=== PATIENT | male | born 1985 | race Caucasian/White ===

== ENCOUNTER 2018-09-04 12:26 | Emergency (ER) | payer MEDICAID ==
--- NOTE | 2018-09-04 13:02 | ER Document Report ---
HPI - HPI Time Seen by Provider: 09/04/18 12:51 Pain Level: 4 Notes: Patient is a 32-year-old male no significant past medical history aside from ADHD and anxiety who presents to the emergency department complaining of left lateral foot pain status post injury yesterday. Patient states that he was standing on a tailgate when his foot slipped off and he inverted on landing. Patient states that the pain does not radiate, but he has noticed some swelling and bruising to the lateral dorsal foot. Denies drug allergies. No other concerns or complaints. Denies any headache, fever, neck pain, URI, sore throat, chest pain, palpitations, syncope, cough, shortness of breath, wheeze, dyspnea, abdominal pain, nausea/vomiting/diarrhea, urinary retention, dysuria, hematuria, back pain, loss of control of bowel or bladder, numbness/tingling, muscle paralysis, or rash. - ROS Systems Reviewed and Negative: Yes All other systems reviewed and negative Past Medical History - Social History Smoking Status: Current Every Day Smoker Family History: Reviewed & Not Pertinent - Past Medical History Cardiac Medical History: Reports: Hx Heart Attack - coronary artery spasms Psychiatric Medical History: Reports: Hx Anxiety, Hx Attention Deficit Hyperactivity Disorder, Hx Depression Past Surgical History: Reports: Hx Cardiac Catheterization, Hx Orthopedic Surgery - Immunizations Hx Diphtheria, Pertussis, Tetanus Vaccination: Yes Vertical Provider Document - CONSTITUTIONAL Agree With Documented VS: Yes Notes: PHYSICAL EXAMINATION: GENERAL: Well-appearing, well-nourished and in no acute distress. LUNGS: Breath sounds clear to auscultation bilaterally and equal. No wheezes rales or rhonchi. HEART: Regular rate and rhythm without murmurs, rubs, gallops. Musculoskeletal: Lt foot/ankle: + ecchymosis and mild swelling lateral dorsal foot. FROM to passive/active. Strength 5+/5. N/V intact distal. + tenderness t o the area of the ATFL and 5th prox metatarsal. No bony tenderness of the ankle. Achilles intact. Extremities: No cyanosis, clubbing, or edema b/l. Peripheral pulses 2+ PT and 1+ b/l to the DP. Capillary refill less than 3 seconds. NEUROLOGICAL: Normal speech, limping gait. Normal sensory, motor exams PSYCH: Normal mood, normal affect. SKIN: Warm, Dry, normal turgor, no rashes or lesions noted. - INFECTION CONTROL TRAVEL OUTSIDE OF THE [place] IN LAST 30 DAYS: No Course - Re-evaluation Re-evalutation: 09/04/18 Patient is an afebrile, well-hydrated, 32-year-old female who presents to the ED with left foot pain and avulsion fracture prox/lateral cuboid. Vitals are acceptable without any significant tachycardia, tachypnea, or hypoxia. PE is otherwise unremarkable for any neurovascular compromise, obvious tendon/ligament rupture, open fracture, septic joint. See XR result. Splint applied today and crutches provided. Patient declined any Tylenol or Motrin at this time. Patient is nontoxic-appearing. No other labs or imaging warranted at this time based on H&P. Conservative measures otherwise for symptoms. Recheck with your PCM in 3-5 days. Call orthopedics today/tomorrow to schedule an appointment for further evaluation and management. Return to the ED with any worsening/concerning symptoms otherwise as reviewed in discharge. Patient is in agreement. - Vital Signs Vital signs: Temp Pulse Resp BP Pulse Ox 98.1 F 86 18 115/73 100 09/04/18 12:32 09/04/18 12:32 09/04/18 12:32 09/04/18 12:32 09/04/18 12:32 Procedures - Immobilization Left Ankle Pre-Proc Neuro Vasc Exam: Normal Immobilizer type: Posterior ankle Performed by: PCT Post-Proc Neuro Vasc Exam: Normal, Unchanged from pre-exam Discharge - Discharge Clinical Impression: Left foot pain, Avulsion fracture Condition: Stable Disposition: HOME, SELF-CARE Additional Instructions: Rest, Ice, Compression, Elevation Use crutches/splint as directed Tylenol/ibuprofen as needed F/u with your PCP in 3-5 days for a recheck Call orthopedics today/tomorrow to schedule an appointment for further evaluation and management Return to the ED with any worsening symptoms and/or development of fever, headache, chest pain, palpitations, syncope, shortness of breath, trouble breathing, abdominal pain, n/v/d, muscle weakness/paralysis, numbness/tingling, swelling, redness, or other worsening symptoms that are concerning to you. Prescriptions: Acetaminophen with Codeine [Tylenol #3 Tablet] 1 each PO BID #6 tablet Forms: Smoking Cessation Education, Return to Work Referrals: RIZWANA PENALOZA MD [Primary Care Provider] - Follow up as needed [facility] [Provider Group] - Follow up in 3-5 days
--- NOTE | 2018-09-04 13:39 | RADIOLOGY REPORT (SQ) ---
EXAM DESCRIPTION: FOOT LEFT COMPLETE COMPLETED DATE/TIME: 09/04/2018 1:28 pm REASON FOR STUDY: pain s/p injury COMPARISON: None. EXAM PARAMETERS: NUMBER OF VIEWS: Three views. TECHNIQUE: AP, lateral and oblique radiographic images acquired of the left foot. LIMITATIONS: None. FINDINGS: MINERALIZATION: Normal. BONES: No dislocation. 5 mm avulsion fracture of the proximal -lateral cuboid. . JOINTS: No effusion. SOFT TISSUES: No significant soft tissue swelling. No radiopaque foreign body. OTHER: No other significant finding. IMPRESSION: 5 mm avulsion fracture of the proximal -lateral cuboid. TECHNICAL DOCUMENTATION: JOB ID: [id number] [place]-72 2010 [employer]- All Rights Reserved Reading location - IP/workstation name: [email or web address]
[2018-09-04 14:03] VITALS: BP 116/71
== END 2018-09-04 14:17 | disposition home or self-care (01) ==
LOC: ER 12:26
DX: S92.212A Displaced fracture of cuboid bone of left foot, initial encounter for closed fracture (principal); X50.0XXA Overexertion from strenuous movement or load, initial encounter; F17.210 Nicotine dependence, cigarettes, uncomplicated; I25.2 Old myocardial infarction
CPT/HCPCS: 99283

== ENCOUNTER 2018-09-19 17:39 | Emergency (ER) | payer MEDICAID ==
[2018-09-19 17:46] VITALS: BP 142/73
[2018-09-19] MEDS ORDERED: DIPH/PERTUSS(ACELL)/TETANUS VAC/PF 0.5 ML SYR (>=10YO) IM ONE (18:01)
--- NOTE | 2018-09-19 18:02 | ER Document Report ---
ED Medical Screen (RME) - General Chief Complaint: Laceration Stated Complaint: HAND INJURY Time Seen by Provider: 09/19/18 17:57 Primary Care Provider: RIZWANA PENALOZA MD [Primary Care Provider] - Follow up as needed Mode of Arrival: Ambulatory Information source: Patient Notes: 32-year-old male presents to ED for laceration to the left web between the first and second finger on the hand. He states he was opening a air compressor package with a serrated knife when the knife slipped cutting his hand. He is left-handed and this is his dominant hand so he is concerned about this laceration. I have greeted and performed a rapid initial assessment of this patient. A comprehensive ED assessment and evaluation of the patient, analysis of test results and completion of medical decision making process will be conducted by an additional ED providers. Dictation of this chart was performed using voice recognition software; therefore, there may be some unintended grammatical errors. TRAVEL OUTSIDE OF THE [place] IN LAST 30 DAYS: No - Related Data Allergies/Adverse Reactions: No Known Allergies Allergy (Verified 09/19/18 17:40) Past Medical History - Past Medical History Cardiac Medical History: Reports: Hx Heart Attack - coronary artery spasms Renal/ Medical History: Denies: Hx Peritoneal Dialysis Psychiatric Medical History: Reports: Hx Anxiety, Hx Attention Deficit Hyperactivity Disorder, Hx Depression Past Surgical History: Reports: Hx Cardiac Catheterization, Hx Orthopedic Surgery - Immunizations Hx Diphtheria, Pertussis, Tetanus Vaccination: Yes Physical Exam - Vital signs Vitals: Temp Pulse Resp BP Pulse Ox 98.6 F 94 18 142/73 H 97 09/19/18 17:45 09/19/18 17:45 09/19/18 17:45 09/19/18 17:45 09/19/18 17:45 Course - Vital Signs Vital signs: Temp Pulse Resp BP Pulse Ox 98.6 F 94 18 142/73 H 97 09/19/18 17:45 09/19/18 17:45 09/19/18 17:45 09/19/18 17:45 09/19/18 17:45 Doctor's Discharge - Discharge Referrals: RIZWANA PENALOZA MD [Primary Care Provider] - Follow up as needed
[2018-09-19] MEDS ORDERED: LIDOCAINE 1% INJ-PF (10 MG/ML) 30 ML SDV INJ ONE (19:29)
--- NOTE | 2018-09-19 19:31 | ER Document Report ---
ED Wound - General Chief Complaint: Laceration Stated Complaint: HAND INJURY Time Seen by Provider: 09/19/18 17:57 Primary Care Provider: RIZWANA PENALOZA MD [Primary Care Provider] - Follow up as needed Mode of Arrival: Ambulatory Information source: Patient TRAVEL OUTSIDE OF THE [place] IN LAST 30 DAYS: No - HPI Patient complains to provider of: Laceration Notes: Patient here with complaints of laceration to the left hand. He was opening up a compressor package with a serrated kitchen knife and it slipped and stabbed him in the left hand between his thumb and his index finger. Bleeding controlled. No numbness, tingling, weakness. Tetanus was updated today. He denies any redness or drainage. No nausea, vomiting, diarrhea. Pain is mild, constant, worse with movement, better with rest. No chest pain or shortness of breath. No nausea, vomiting, diarrhea. No other injuries, no other complaints. - Related Data Allergies/Adverse Reactions: No Known Allergies Allergy (Verified 09/19/18 17:40) Past Medical History - General Information source: Patient - Social History Smoking Status: Current Every Day Smoker Family History: Reviewed & Not Pertinent Patient has suicidal ideation: No Patient has homicidal ideation: No - Past Medical History Cardiac Medical History: Reports: Hx Heart Attack - coronary artery spasms Renal/ Medical History: Denies: Hx Peritoneal Dialysis Psychiatric Medical History: Reports: Hx Anxiety, Hx Attention Deficit Hyperactivity Disorder, Hx Depression Past Surgical History: Reports: Hx Cardiac Catheterization, Hx Orthopedic Surgery - Immunizations Hx Diphtheria, Pertussis, Tetanus Vaccination: Yes Review of Systems - Review of Systems -: Yes All other systems reviewed and negative Physical Exam - Vital signs Vitals: Temp Pulse Resp BP Pulse Ox 98.6 F 94 18 142/73 H 97 09/19/18 17:45 09/19/18 17:45 09/19/18 17:45 09/19/18 17:45 09/19/18 17:45 - Notes Notes: GENERAL: alert, cooperative, nontoxic, no distress. HEAD: normocephalic, atraumatic EYES: conjunctiva pink without discharge, no external redness or swelling. EARS: no external swelling, no external redness NOSE: atraumatic, no external swelling MOUTH/THROAT: mucous membranes moist and pink NECK: soft, supple, full range of motion, no meningismus. CHEST: no distress, lungs clear and equal throughout. No wheezing, rales, rhonchi. CARDIAC: regular rate and rhythm, no murmur, normal capillary refill, normal pulses. BACK: full range of motion, no CVA tenderness. EXTREMITIES: full range of motion of all extremities. No redness, no swelling. 1 cm laceration to the webspace between the left thumb and index finger. Full range of motion of the thumb. No tendon laceration. No foreign body. Bleeding controlled. No surrounding redness or drainage. NEURO: alert and oriented 3, no focal deficits, full range of motion of all extremities. PYSCH: appropriate mood, affect. Patient is cooperative. SKIN: pink, warm, dry, no rash. Course - Re-evaluation Re-evalutation: 09/19/18 20:17 Patient not nontoxic-appearing with stable vitals. Patient here with complaints of left hand laceration. He was opening up a package when he excellently stabbed himself between the left thumb and left index finger. Patient noted to have a laceration which was repaired patient will be discharged home. He is instructed to follow-up in 10 to 12 days for suture removal, sooner for worsening pain, fever, redness, drainage, numbness, tingling, weakness, any further concerns. The patient's emergency department workup and current diagnosis were explained to the patient and or family. Follow-up instructions were provided. Medications if prescribed were discussed. Instructions for when to return to the emergency department including specific worrisome symptoms were discussed with the patient and/or family. - Vital Signs Vital signs: Temp Pulse Resp BP Pulse Ox 98.6 F 94 18 142/73 H 97 09/19/18 17:45 09/19/18 17:45 09/19/18 17:45 09/19/18 17:45 09/19/18 17:45 Procedures - Laceration/Wound Repair LEFT HAND Wound length (cm): 1 Wound's Depth, Shape: Superficial, Linear Laceration pre-procedure: Sterile PPE donned, Sterile drapes applied, Shur-Clens applied Anesthetic type: 1% Lidocaine Wound explored: Clean, No foreign body removed Irrigated w/ Saline (mLs): 100 Wound Repaired With: Sutures Suture Size/Type: 4:0, Ethilon Number of Sutures: 3 Layer Closure?: No Post-procedure wound care: Sterile dressing applied Post-procedure NV exam normal: Yes Complications: No Discharge - Discharge Clinical Impression: Laceration of left hand Qualifiers: Encounter type: initial encounter Foreign body presence: without foreign body Qualified Code(s): S61.412A - Laceration without foreign body of left hand, initial encounter Condition: Stable Disposition: HOME, SELF-CARE Instructions: Antibiotic Ointment Protection (OM), Laceration Care (OM), Soap Cleansing ([facility]) Additional Instructions: Clean wound twice a day with soap and water. Drink plenty of fluids. Follow-up with your doctor in 10 to 12 days for suture removal, sooner for worsening pain, fever, redness, drainage, numbness, tingling, weakness, any further concerns. Forms: Elevated Blood Pressure, Smoking Cessation Education Referrals: RIZWANA PENALOZA MD [Primary Care Provider] - Follow up as needed
[2018-09-19] MEDS ORDERED: HYDROCODONE/ACETAMINOPHEN 5-325 MG TABLET PO ONE (20:48)
== END 2018-09-19 20:53 | disposition home or self-care (01) ==
LOC: ER 17:39
PROC: 0HQGXZZ Repair Left Hand Skin, External Approach (ICD-10-PCS; principal; 2018-09-19)
DX: S61.412A Laceration without foreign body of left hand, initial encounter (principal); W01.0XXA Fall on same level from slipping, tripping and stumbling without subsequent striking against object, initial encounter; F17.200 Nicotine dependence, unspecified, uncomplicated
CPT/HCPCS: 90471; 90715; 99282

== ENCOUNTER 2018-12-02 10:09 | Emergency (ER) | payer SELFPAY ==
[2018-12-02] MEDS ORDERED: OXYCODONE-ACETAMINOPHEN 5-325 MG TABLET PO ONE ×2 (10:20→11:07)
--- NOTE | 2018-12-02 10:22 | ER Document Report ---
ED Medical Screen (RME) - General Chief Complaint: Foot Injury Stated Complaint: FOOT INJURY Time Seen by Provider: 12/02/18 10:15 Primary Care Provider: RIZWANA PENALOZA MD [Primary Care Provider] - Follow up as needed Mode of Arrival: Wheelchair Information source: Patient Notes: This 32-year-old male presents to the emergency department with a nail through his work boot that goes all the way through his foot. Patient reports his tetanus is up-to-date. Reports it is a little bit uncomfortable. Patient was working on a shed at a personal residence. I have greeted and performed a rapid initial assessment of this patient. A comprehensive ED assessment and evaluation of the patient, analysis of test results and completion of the medical decision making process will be conducted by additional ED providers. Dictation of this chart was performed using voice recognition software; therefore, there may be some unintended grammatical errors. TRAVEL OUTSIDE OF THE [place] IN LAST 30 DAYS: No - Related Data Allergies/Adverse Reactions: No Known Allergies Allergy (Verified 12/02/18 10:10) Past Medical History - Past Medical History Cardiac Medical History: Reports: Hx Heart Attack - coronary artery spasms Renal/ Medical History: Denies: Hx Peritoneal Dialysis Psychiatric Medical History: Reports: Hx Anxiety, Hx Attention Deficit Hyperactivity Disorder, Hx Depression Past Surgical History: Reports: Hx Cardiac Catheterization, Hx Orthopedic Surgery - Immunizations Hx Diphtheria, Pertussis, Tetanus Vaccination: Yes Physical Exam - Vital signs Vitals: Temp Pulse Resp BP Pulse Ox 98.6 F 88 18 114/78 97 12/02/18 10:13 12/02/18 10:13 12/02/18 10:13 12/02/18 10:13 12/02/18 10:13 Course - Vital Signs Vital signs: Temp Pulse Resp BP Pulse Ox 98.6 F 88 18 114/78 97 12/02/18 10:13 12/02/18 10:13 12/02/18 10:13 12/02/18 10:13 12/02/18 10:13 Doctor's Discharge - Discharge Referrals: RIZWANA PENALOZA MD [Primary Care Provider] - Follow up as needed
--- NOTE | 2018-12-02 10:57 | RADIOLOGY REPORT (SQ) ---
EXAM DESCRIPTION: FOOT LEFT COMPLETE COMPLETED DATE/TIME: 12/02/2018 10:41 am REASON FOR STUDY: nail gun to foot thru shoe COMPARISON: 09/04/2018 NUMBER OF VIEWS: Three views. TECHNIQUE: AP, lateral and oblique radiographic images acquired of the left foot. LIMITATIONS: Patient is wearing boot. FINDINGS: MINERALIZATION: Normal. BONES: No acute fracture or dislocation. No worrisome bone lesions. JOINTS: No effusions. SOFT TISSUES: No soft tissue swelling. No foreign body. OTHER: There is a nail which appears to penetrate the 1st 2nd metatarsal interspace without evidence of fracture or cortical violation. IMPRESSION: There is a nail which appears to penetrate the left 1st 2nd metatarsal interspace withou t evidence of fracture or cortical violation. Patient is wearing boot, which somewhat limits radiogr aphic evaluation. TECHNICAL DOCUMENTATION: JOB ID: [id number] [employer]- All Rights Reserved Reading location - IP/workstation name: [email or web address]
[2018-12-02] MEDS ORDERED: PROMETHAZINE HCL 25 MG TABLET PO ONE (11:07)
[2018-12-02] MEDS ORDERED: CEFTRIAXONE 1 GM/D5W RTU 1 GM/50 ML RTUPB IV ONE (11:23)
[2018-12-02] MEDS ORDERED: LIDOCAINE 1% INJ (10 MG/ML) 10 ML MDV INJ ONE (11:34)
[2018-12-02] MEDS ORDERED: CEFTRIAXONE INJ 1000 MG VIAL IM ONE (11:34)
--- NOTE | 2018-12-02 12:08 | ER Document Report ---
ED Extremity Problem, Lower - General Chief Complaint: Foot Injury Stated Complaint: FOOT INJURY Time Seen by Provider: 12/02/18 10:15 Primary Care Provider: LYNSEY ESTRADA MD [ACTIVE PROVISIONAL STAFF] - Follow up in 3-5 days Mode of Arrival: Wheelchair Notes: Patient accidentally fired a nail gun which sent a nail into his left foot between the distal metatarsals 1 and 2.. The nail went through the patient's boot and through the foot and through the bottom of the boot and the point of the nail projected about a centimeter out of the bottom of the boot. Patient is not able to bear weight of course. Has pain sensation in the entire foot. TRAVEL OUTSIDE OF THE [place] IN LAST 30 DAYS: No - Related Data Allergies/Adverse Reactions: No Known Allergies Allergy (Verified 12/02/18 10:10) Past Medical History - General Information source: Patient - Social History Smoking Status: Current Every Day Smoker Chew tobacco use (# tins/day): No Frequency of alcohol use: Social Drug Abuse: None Family History: Reviewed & Not Pertinent Patient has suicidal ideation: No Patient has homicidal ideation: No - Past Medical History Cardiac Medical History: Reports: Hx Heart Attack - coronary artery spasms Psychiatric Medical History: Reports: Hx Anxiety, Hx Attention Deficit Hyperactivity Disorder, Hx Depression Past Surgical History: Reports: Hx Cardiac Catheterization, Hx Orthopedic Surgery - right hand, left foot - Immunizations Hx Diphtheria, Pertussis, Tetanus Vaccination: Yes Review of Systems - Review of Systems Notes: CONSTITUTIONAL : Denies fever. CARDIOVASCULAR: Denies chest pain. RESPIRATORY: Denies cough, chest congestion, or shortness of breath. GASTROINTESTINAL: Denies abdominal pain or nausea, vomiting, or diarrhea. GENITOURINARY: Denies difficulty or painful urinating, urinary frequency, blood in urine. Physical Exam - Vital signs Vitals: Temp Pulse Resp BP Pulse Ox 98.6 F 88 18 114/78 97 12/02/18 10:13 12/02/18 10:13 12/02/18 10:13 12/02/18 10:13 12/02/18 10:13 Interpretation: Normal Notes: PHYSICAL EXAMINATION: GENERAL: Well-appearing, no acute distress. HEAD: Atraumatic, normocephalic. NECK: Normal range of motion, supple. LUNGS: Breath sounds clear and equal bilaterally. HEART: Regular rate and rhythm without murmurs heard. ABDOMEN: Soft, nontender. No guarding or rebound or masses felt. Extremities: Right foot is in a leather boot with the top of the nail flush with the top of the boot. The nail goes down through between the distal metatarsal #1 and #2 and sticks out about a centimeter in the bottom of the boot Course - Re-evaluation Re-evalutation: 12/02/18 19:17 Patient's boot was removed. With some effort, we were able to eventually pull the nail out. Patient was given a gram of Rocephin IM. Pain medications prescribed. Spoke with Dr. Estrada, on-call for Ortho, and he recommended putting the patient on Cipro. He said he would be happy to see the patient in follow-up in a few days in his office. That information was provided to the patient. Patient was advised to gently wash the foot at least a couple times a day with soap and water. Do not apply any creams or lotions or any other medications. Elevate the foot as much as possible. Was going to give the patient crutches but he says he has some at home so he does not want any. - Vital Signs Vital signs: Temp Pulse Resp BP Pulse Ox 97.6 F 68 18 123/77 100 12/02/18 12:23 12/02/18 12:23 12/02/18 12:23 12/02/18 12:23 12/02/18 12:23 - Diagnostic Test Radiology results interpreted by me: 12/02/18 19:16 X-ray shows the nail between the 2 distal metatarsals and read by radiology as showing no bone injury although it is quite close and looks like it may have bruised the inner aspect of the #1 metatarsal. Discharge - Discharge Clinical Impression: Nail wound of left foot Condition: Stable Disposition: HOME, SELF-CARE Additional Instructions: Puncture Wound You have a puncture wound. Because these wounds often penetrate deeply beneath the skin, you must observe them carefully for complications. The wound has been examined for retained foreign material and for damage to tendons and nerves. The area should be rested and elevated for 24 hours. Then you can use the injured part -- if moving it is painfree. Punctures of the hand or foot may require splinting or crutches. The dressing should be changed daily until the wound is healed. Watch for signs of infection. Call the doctor immediately if redness, swelling, warmth, increasing pain, or wound drainage occur. If you develop numbness, persistent bleeding, or inability to move the injured area, please return for prompt re-evaluation. Rocephin You have been given an injection of an antibiotic called Rocephin (ceftriaxone). Sometimes the injection must be combined with antibiotic pills. For some infections, such as an uncomplicated ear infection, Rocephin provides all the antibiotic that's needed. The antibiotic will be in your body for about two days. For serious infections, we usually repeat doses of Rocephin daily. Side effects are very unusual following a shot. Women may develop vaginal yeast infections, and babies can get yeast (thrush) in the mouth following the use of antibiotics. Contact your physician if you have symptoms with this medication. Allergy to this antibiotic can result in hives, wheezing, faintness, or itching. If symptoms of allergy occur, call the doctor at once. Ciprofloxacin You have been given an antibacterial agent, ciprofloxacin (Cipro). This medicine is not related to the penicillins, sulfas, cephalosporins, or tetracyclines. It is often given to patients who are allergic to these drugs. It has been chosen for you either because other drugs are not appropriate, or because of the nature of your problem. Cipro should not be taken with antacids, as these can decrease its effectiveness. It can be taken without regard to meals. CIPRO SHOULD NOT BE TAKEN BY CHILDREN, NURSING WOMEN, OR WOMEN. Although Cipro is usually well-tolerated, common side effects can include nausea and diarrhea. Contact your doctor if you experience any unusual symptoms while on this medication, such as joint pain or swelling, shortness of breath, wheezing, faintness, or hives. Oral Narcotic Medication You have been given a prescription for pain control. This medication is a narcotic. It's best taken with food, as nausea can result if taken on an empty stomach. Don't operate machinery or drive within six hours of taking this medication. Do not combine this medicine with alcohol, or with any medication which can cause sedation (such as cold tablets or sleeping pills) unless you get permission from the physician. Narcotics tend to cause constipation. If possible, drink plenty of fluids and eat a diet high in fiber and fruits. FOLLOW-UP CARE: If you have been referred to a physician for follow-up care, call the physicians office for an appointment as you were instructed or within the next two days. If you experience worsening or a significant change in your symptoms, notify the physician immediately or return to the Emergency Department at any time for re-evaluation. Remove the bandage from your foot and clean it with soap and water at least twice a day. The nail has been removed. Your x-ray did not show any fractures and we do not think that there is any significant injury to the bone in your foot. You are being put on an antibiotic and also being given a prescription for pain medications. Elevate your foot is much as possible on a pillow or to as much of the time as you can. Do not plan to work for at least 1 week. I have spoken with an orthopedic surgeon who can follow you up next week if the foot is not doing well. Return immediately for reevaluation if your foot begins to swell significantly, turns pink or red, develops red streaks, or has significant increasing in pain. Prescriptions: Ciprofloxacin HCl [Cipro 500 mg Tablet] 500 mg PO BID #10 tablet Oxycodone HCl/Acetaminophen [Percocet 5-325 mg Tablet] 1 - 2 tab PO Q4H PRN #10 tablet PRN Reason: Forms: Return to Work Referrals: LYNSEY ESTRADA MD [ACTIVE PROVISIONAL STAFF] - Follow up in 3-5 days
[2018-12-02 12:27] VITALS: BP 123/77
== END 2018-12-02 12:27 | disposition home or self-care (01) ==
LOC: ER 10:09
DX: S91.341A Puncture wound with foreign body, right foot, initial encounter (principal); W29.4XXA Contact with nail gun, initial encounter; F17.200 Nicotine dependence, unspecified, uncomplicated
CPT/HCPCS: 99283; 96372; 73630; J0696